=== PATIENT | female | born 1990 | race Hispanic/Latino ===

== ENCOUNTER 2021-06-25 20:12 | Day surgery (SDC) | payer OTHER ==
[2021-06-25 20:42] VITALS: BMI 25.0
[2021-06-25] MEDS ORDERED: hydrALAZINE 20 MG/ML VIAL SLOW IVP PRN (20:57)
[2021-06-25 21:06] LABS: Bilirubin Neg (Negative); Blood, Urine Negative (Negative); Clarity Clear (Clear); Glucose, Urine (Dipstick) Normal (Negative); Ketone, Urine Negative (Negative); Leukocyte Negative (Negative); Nitrite Negative (Negative); Protein, Urine (Dipstick) Negative (Neg-Trace); Specific Gravity, Urine 1.005 (1.002-1.036); Urobilinogen Normal mg/dL (Less than 2)
[2021-06-25 21:08] LABS: Urine Culture Reflex No No
[2021-06-25 21:12] LABS: RBC/HPF 0-3 HPF (0-3); Squamous Epithelial 0-3 HPF (0-3); WBC/HPF 0-3 HPF (0-3)
[2021-06-25 21:13] LABS: Bacteria/HPF None Seen HPF (None Seen)
[2021-06-25 21:33] LABS: #Eosinphils 0.1 10x3/uL (0.0-0.5); #Monocytes 0.6 10x3/uL (0.0-1.1); #Neutrophils 6.1 10x3/uL (1.5-8.4); %Basophils 0.3 % (0.0-2.0); %Eosinophils 1.4 % (0.0-6.0); %Lymphocytes 23.6 % (18.0-47.0); %Monocytes 6.8 % (0.0-10.0); %Neutrophils 67.3 % (40.0-75.0); Hemoglobin 9.9 g/dL (12.0-15.5); Mean Corpuscular HGB CONC 33.7 g/dL (32.0-36.0); Mean Corpuscular Hemoglobin 28.4 pg (27.0-33.0); Mean Corpuscular Volume 84.5 fl (81.6-98.3); Mean Platelet Volume 8.6 fl (7.4-10.4); Platelet Count 389 10x3/uL (150-450); RBC Distribution Width 13.3 % (11.5-14.5); Red Blood Cell (RBC) Count 3.48 10x6/uL (3.90-5.03)
[2021-06-25 21:53] LABS: Prothrombin Time 10.6 sec (9.5-12.1)
== END 2021-06-25 23:05 | disposition home or self-care (01) ==
LOC: CSHLD/OP 20:12
PROVIDERS: ATTEND Family Medicine
DX: O99.891 Other specified diseases and conditions complicating pregnancy (principal); R10.9 Unspecified abdominal pain; O34.211 Maternal care for low transverse scar from previous cesarean delivery; O99.012 Anemia complicating pregnancy, second trimester; Z3A.20 20 weeks gestation of pregnancy; Z79.899 Other long term (current) drug therapy; W18.2XXA Fall in (into) shower or empty bathtub, initial encounter; Y92.002 Bathroom of unspecified non-institutional (private) residence as the place of occurrence of the external cause
CPT/HCPCS: 36415; 76815; 81001; 85025; 85384; 85460; 85610; 99283

== ENCOUNTER 2021-10-24 12:28 | Outpatient (CLI) | payer OTHER ==
[2021-10-24 14:51] LABS: Hemoglobin 9.8 g/dL (12.0-15.5); Mean Corpuscular HGB CONC 32.2 g/dL (32.0-36.0); Mean Corpuscular Hemoglobin 26.2 pg (27.0-33.0); Mean Corpuscular Volume 81.3 fl (81.6-98.3); Mean Platelet Volume 9.8 fl (7.4-10.4); Platelet Count 329 10x3/uL (150-450); RBC Distribution Width 13.9 % (11.5-14.5); Red Blood Cell (RBC) Count 3.74 10x6/uL (3.90-5.03); White Blood Cell (WBC) Count 8.9 10x3/uL (3.5-10.5)
[2021-10-24 15:24] LABS: Hep B Surf Ag Non-Reactive S/CO (NonReactive); Syphilis Antibody Nonreactive (Nonreactive); Syphilis Antibody Index 0.04 S/CO (<1.00 Non-Reactive)
[2021-10-24 15:27] LABS: HBSAg Index 0.17 S/CO (0-0.99)
== END 2021-10-24 12:29 | disposition home or self-care (01) ==
LOC: CSHLAB 12:28
PROVIDERS: ATTEND Family Medicine
DX: Z01.812 Encounter for preprocedural laboratory examination (principal); Z20.822 Contact with and (suspected) exposure to COVID-19
CPT/HCPCS: 36415; 85027; 86780; 86900; 86901; 87340; U0003; U0005

== ENCOUNTER 2021-10-28 10:04 | Inpatient (IN) | payer MEDICAID, OTHER ==
[2021-10-28] MEDS ORDERED: Lactated Ringer's 1,000 ML IV SCH (10:33)
[2021-10-28] MEDS ORDERED: Promethazine HCl 25 MG/ML VIAL IM PRN ×3 (10:33→16:16)
[2021-10-28] MEDS ORDERED: Ondansetron PF 4 MG/2 ML Vial IVP PRN ×3 (10:33→16:16)
[2021-10-28] MEDS ORDERED: hydrALAZINE 20 MG/ML VIAL SLOW IVP PRN ×2 (10:33→16:16)
[2021-10-28] MEDS ORDERED: Bicitra 30 ML UDCUP PO PRN (10:33)
[2021-10-28] MEDS ORDERED: Famotidine/PF 20 mg/2ml Vial SLOW IVP PRN (10:33)
[2021-10-28] MEDS ORDERED: ceFAZolin 2 GM/Dextrose 50 ML 2 GM in Premix Bag 1 BAG IVPB SCH (10:33)
[2021-10-28] MEDS ORDERED: Meperidine HCl/PF 25 MG/ML VIAL SLOW IVP PRN (11:33)
[2021-10-28] MEDS ORDERED: Ondansetron HCl/PF 4 MG/2 ML Vial IVP PRN (11:33)
[2021-10-28] MEDS ORDERED: Naloxone HCl 0.4 mg/ml Vial IVP PRN ×2 (11:33)
[2021-10-28] MEDS ORDERED: Moisturizing Cream (Eucerin) 113 GM JAR TOP PRN (11:33)
[2021-10-28] MEDS ORDERED: diphenhydrAMINE 50 MG/ML VIAL IVP PRN (11:33)
[2021-10-28] MEDS ORDERED: Ketorolac Tromethamine 30 MG/ML VIAL IVP PRN (11:33)
[2021-10-28] MEDS ORDERED: Fentanyl 100 MCG/2 ML VIAL SLOW IVP PRN (11:33)
[2021-10-28] MEDS ORDERED: HYDROmorphone 2 MG/ML VIAL SLOW IVP PRN (11:33)
[2021-10-28] MEDS ORDERED: Promethazine HCl 25 MG SUPP PR PRN (11:33)
[2021-10-28] MEDS ORDERED: Naloxone HCl 0.4 mg/ml Vial IV PRN (11:33)
[2021-10-28] MEDS ORDERED: Ketorolac Tromethamine 30 MG/ML VIAL IVP SCH (11:45)
[2021-10-28] MEDS ORDERED: Communication Order-Pharmacy FS SCH (11:45)
[2021-10-28 11:49] VITALS: BMI 30.8
[2021-10-28] MEDS ORDERED: CEFAZOLIN 2 GM VIAL ONE (11:52)
[2021-10-28] MEDS ORDERED: Morphine PF 10 MG/10 ML VIAL ONE (12:11)
[2021-10-28] MEDS ORDERED: Fentanyl 100 MCG/2 ML VIAL ONE (12:11)
[2021-10-28] MEDS ORDERED: ePHEDrine Sulfate 50 MG/10 ML VIAL ONE (12:41)
[2021-10-28] MEDS ORDERED: Ketorolac Tromethamine 30 MG/ML VIAL ONE (12:41)
[2021-10-28] MEDS ORDERED: Oxytocin 10 UNITS/ML VIAL ONE (12:52)
[2021-10-28] MEDS ORDERED: diphenhydrAMINE 50 MG/ML VIAL ONE (13:02)
[2021-10-28] MEDS ORDERED: Methylergonovine 0.2 MG/ML VIAL IM SCH (13:30)
[2021-10-28] MEDS ORDERED: NS w/ Oxytocin 30 units 500 ML IVPB SCH (14:30)
[2021-10-28] MEDS ORDERED: NS w/ Oxytocin 30 units 500 ML ONE (14:31)
[2021-10-28] MEDS ORDERED: Carboprost 250 MCG/ML AMP ONE (14:31)
[2021-10-28] MEDS ORDERED: Bisacodyl 10 MG SUPP PR PRN (16:16)
[2021-10-28] MEDS ORDERED: diphenhydrAMINE 25 MG CAP PO PRN (16:16)
[2021-10-28] MEDS ORDERED: Boostrix 0.5 ML (Tdap) VIAL IM ONE (16:16)
[2021-10-28] MEDS ORDERED: NS w/ Oxytocin 30 units 500 ML IV SCH (16:16)
[2021-10-28] MEDS ORDERED: Meperidine HCl/PF 25 MG/ML VIAL IM PRN (16:16)
[2021-10-28] MEDS ORDERED: Lanolin Ointment 7 GM TUBE TOP PRN (16:16)
[2021-10-28] MEDS: Ketorolac Tromethamine 30 MG/ML VIAL IVP SCH (18:01)
[2021-10-28] MEDS: Docusate 100 MG CAP PO SCH (19:27)
[2021-10-28] MEDS: Ferrous Sulfate 325 MG TAB PO SCH (19:28)
[2021-10-29] MEDS: Ketorolac Tromethamine 30 MG/ML VIAL IVP SCH ×2 (00:22→05:33)
[2021-10-29 05:19] LABS: Hemoglobin 8.6 g/dL (12.0-15.5); Mean Corpuscular HGB CONC 33.1 g/dL (32.0-36.0); Mean Corpuscular Hemoglobin 26.6 pg (27.0-33.0); Mean Corpuscular Volume 80.5 fl (81.6-98.3); Mean Platelet Volume 9.5 fl (7.4-10.4); Platelet Count 246 10x3/uL (150-450); RBC Distribution Width 14.1 % (11.5-14.5); Red Blood Cell (RBC) Count 3.23 10x6/uL (3.90-5.03)
[2021-10-29] MEDS: Ferrous Sulfate 325 MG TAB PO SCH ×2 (08:27→21:18)
[2021-10-29] MEDS: HYDROcodone/Acetaminophen 5/325 mg Tablet PO PRN ×3 (08:27→16:19)
[2021-10-29] MEDS: Prenatal Vitamin 1 TAB PO SCH (08:27)
[2021-10-29] MEDS: Docusate 100 MG CAP PO SCH ×2 (08:27→21:17)
[2021-10-29] MEDS: Ibuprofen 800 MG TAB PO SCH ×2 (13:45→21:19)
[2021-10-29] MEDS: Simethicone Chewable 80 MG TAB PO PRN (21:18)
[2021-10-30] MEDS: HYDROcodone/Acetaminophen 5/325 mg Tablet PO PRN ×5 (02:29→20:42)
[2021-10-30] MEDS: Ibuprofen 800 MG TAB PO SCH ×3 (05:10→21:50)
[2021-10-30] MEDS: Docusate 100 MG CAP PO SCH ×2 (08:09→20:43)
[2021-10-30] MEDS: Prenatal Vitamin 1 TAB PO SCH (08:09)
[2021-10-30] MEDS: Ferrous Sulfate 325 MG TAB PO SCH ×2 (08:09→20:43)
[2021-10-30] MEDS: Simethicone Chewable 80 MG TAB PO PRN ×3 (08:10→20:43)
[2021-10-31] MEDS: HYDROcodone/Acetaminophen 5/325 mg Tablet PO PRN ×4 (03:57→17:28)
[2021-10-31] MEDS: Ibuprofen 800 MG TAB PO SCH ×2 (05:53→14:43)
[2021-10-31 08:05] VITALS: BP 141/63; TEMP 97.7
[2021-10-31] MEDS: Prenatal Vitamin 1 TAB PO SCH (08:57)
[2021-10-31] MEDS: Docusate 100 MG CAP PO SCH (08:57)
[2021-10-31] MEDS: Ferrous Sulfate 325 MG TAB PO SCH (08:57)
[2021-10-31] MEDS: Simethicone Chewable 80 MG TAB PO PRN (17:28)
== END 2021-10-31 18:05 | disposition home or self-care (01) | DRG 788 ==
LOC: CSHLD 10:04 → CSHPP 15:54
PROVIDERS: ADMIT Family Medicine; ATTEND Family Medicine
PROC: 10D00Z1 Extraction of Products of Conception, Low, Open Approach (ICD-10-PCS; principal; 2021-10-28)
DX: O34.211 Maternal care for low transverse scar from previous cesarean delivery (principal); D64.9 Anemia, unspecified; O99.02 Anemia complicating childbirth; Z3A.39 39 weeks gestation of pregnancy; Z37.0 Single live birth; O62.2 Other uterine inertia
CPT/HCPCS: 36415; 51702; 85027; 86850; 86900; 86901; J0690; J1200; J1885; J2210; J2274; J2590; J3010; S0028

== ENCOUNTER 2023-02-19 19:19 | Emergency (ER) | payer OTHER, SELFPAY ==
[2023-02-19 19:48] LABS: Blood, Urine 150 (Negative); Clarity Cloudy (Clear); Glucose, Urine (Dipstick) Normal (Negative); Ketone, Urine Negative (Negative); Protein, Urine (Dipstick) 100 mg/dl (Neg-Trace)
[2023-02-19 19:54] LABS: Leukocyte Unable to Interpret (Negative)
[2023-02-19 19:55] LABS: Bilirubin Unable to Interpret (Negative); Nitrite Unable to Interpret (Negative); Urobilinogen UNABLE TO INTERPRET mg/dL (Less than 2)
[2023-02-19 19:56] LABS: Pregnancy Test - Urine (BHCG) Negative (Negative); Pregu Control Background? CLEAR/WHITE (CLR/WHITE); Pregu Control Bar Appear? YES (CONTROL BAR)
[2023-02-19 20:00] LABS: Bacteria/HPF 2+ HPF (None Seen); CAUTI Indications for Culture Dysuria,urgency,freq; WBC/HPF Greater than 50 HPF (0-3)
[2023-02-19 20:01] LABS: Mucous/LPF 1+ LPF (<2+)
[2023-02-19 20:02] LABS: Urine Culture Reflex Yes Yes
[2023-02-19] MEDS ORDERED: Acetaminophen 500 MG TAB ONE (20:06)
[2023-02-19] MEDS ORDERED: Ketorolac Tromethamine 30 MG/ML VIAL ONE (20:06)
== END 2023-02-19 21:00 | disposition home or self-care (01) ==
LOC: CSHERS 19:19
DX: N30.00 Acute cystitis without hematuria (principal)
CPT/HCPCS: 81001; 81025; 87077; 87086; 87186; 96372; 99284; J1885